=== PATIENT | female | born 1965 | race African-American/Black ===

== ENCOUNTER 2023-09-24 11:42 | Outpatient (CLI) | payer OTHER | END 2023-09-24 11:43 | disposition home or self-care (01) | LOC: SCSRAD 11:42 | PROVIDERS: ATTEND Nurse Practitioner Family | DX: S99.921A Unspecified injury of right foot, initial encounter (principal); S92.511A Displaced fracture of proximal phalanx of right lesser toe(s), initial encounter for closed fracture ==